=== PATIENT | female | born 1985 | race Hispanic/Latino ===

== ENCOUNTER 2019-08-09 18:45 | Emergency (ER) | payer OTHER ==
[2019-08-09] MEDS ORDERED: ACETAMINOPHEN EXTRA STRENGTH 500 MG TABLET ONE (19:05)
[2019-08-09 19:51] LABS: RAPID GROUP A STREP POSITIVE (NEGATIVE)
[2019-08-09] MEDS ORDERED: CEFTRIAXONE SODIUM 1 GM ONE (19:53)
[2019-08-09] MEDS ORDERED: KETOROLAC TROMETHAMINE 60 MG/2 ML VIAL ONE (19:53)
[2019-08-09] MEDS ORDERED: LIDOCAINE HCL-MPF 1% 2ML VIAL ONE (19:53)
== END 2019-08-09 20:15 | disposition home or self-care (01) ==
LOC: EDH 18:45
DX: J10.1 Influenza due to other identified influenza virus with other respiratory manifestations (principal); Z90.49 Acquired absence of other specified parts of digestive tract; Z98.890 Other specified postprocedural states
CPT/HCPCS: 87804 ×2; 87880; 96372 ×2; 99284; J0696; J1885; J3490